=== PATIENT | female | born 1945 | race Caucasian/White ===

== ENCOUNTER 2017-05-02 07:24 | Day surgery (SDC) | payer MEDICARE, BC ==
[2017-05-02] MEDS ORDERED: Sodium Chloride 0.9% 10 ML Syringe FLUSH PRN (07:40)
[2017-05-02 09:06] VITALS: BP 167/92
--- NOTE | 2017-05-02 11:50 | OR ---
DATE OF PROCEDURE: 05/02/2017 POSTOPERATIVE CARE: Postoperative care will be provided mainly at the [address] [place] [address] Eye [facility] in conjunction with [facility]. PREOPERATIVE DIAGNOSIS: Cataract, left eye. PREOPERATIVE DIAGNOSIS: Cataract, left eye. PROCEDURE: Cataract extraction, phacoemulsification with intraocular lens placement, left eye. ANESTHESIA: Topical and intracameral. ESTIMATED BLOOD LOSS: Minimal. COMPLICATIONS: None. PATHOLOGY SPECIMENS: None. SURGICAL FINDINGS: None. INDICATION FOR PROCEDURE: The patient is a 71-year-old female with history of a visually significant cataract in the left eye, which interfered with activities of daily living. This consisted of a nuclear sclerosis cataract. Following careful discussion of the risks, benefits and alternatives to cataract extraction with intraocular lens placement including blindness and , the patient elected to proceed, and informed, written consent was obtained prior to the procedure. DESCRIPTION OF THE PROCEDURE: The patient was previously identified, and a teresa placed above the left eye. All sources, including the patient, indicated that the left eye was the correct eye. The patient was subsequently taken to the operating room where standard monitors were applied. The patient was then prepped and draped in the usual sterile fashion for ophthalmic surgery. Attention was first directed at the 12 o'clock position where a paracentesis port was fashioned. Shugar solution followed by Viscoat was instilled into the eye. Attention was then directed to the 8:30 position where a triplanar incision was made in a near-clear manner using a keratome. A continuous capsulorrhexis was then made using a combination of the cystotome and Utrata forceps. Hydrodissection was achieved using a balanced salt solution, and the lens rotated nicely. Phacoemulsification was then done using a modified [id number] technique without complication. Phaco time was 8.03 CDE. The remaining cortex was removed using the irrigation/aspiration handpiece. Provisc was then instilled into the eye. A Technis lens, model [id number], at 22.0 diopters was then placed in the capsular bag using an [place] injector. The remaining viscoelastic was removed using the irrigation/aspiration forceps. All wounds were then checked and found to be watertight. The lid speculum and drapes were removed. Maxitrol ointment was placed in the patient's left eye, and the eye was shielded. The patient tolerated the procedure well. The patient was instructed to follow up tomorrow. All needle and sponge counts were correct at the end of the procedure. Marisol Figueredo MD /[id number]
== END 2017-05-02 09:24 | disposition home or self-care (01) ==
LOC: JP.SDS 07:24
PROVIDERS: ATTEND Ophthalmology
DX: H25.12 Age-related nuclear cataract, left eye (principal); J44.9 Chronic obstructive pulmonary disease, unspecified; F32.9 Major depressive disorder, single episode, unspecified; F17.200 Nicotine dependence, unspecified, uncomplicated; Z79.899 Other long term (current) drug therapy
CPT/HCPCS: 66984; C1780; J7050

== ENCOUNTER 2017-05-16 08:23 | Day surgery (SDC) | payer MEDICARE, BC ==
[2017-05-16] MEDS ORDERED: Sodium Chloride 0.9% 10 ML Syringe FLUSH PRN (09:00)
[2017-05-16 10:05] VITALS: BP 149/92
--- NOTE | 2017-05-16 10:24 | OR ---
DATE OF PROCEDURE: 05/16/2017 POSTOPERATIVE CARE: Postoperative care will be provided mainly at the [address] [place] [address] [facility] in conjunction with [facility]. PREOPERATIVE DIAGNOSIS: Cataract, right eye. PREOPERATIVE DIAGNOSIS: Cataract, right eye. PROCEDURE: Cataract extraction, phacoemulsification with intraocular lens placement, right eye. ANESTHESIA: Topical and intracameral. ESTIMATED BLOOD LOSS: Minimal. COMPLICATIONS: None. PATHOLOGY SPECIMENS: None. SURGICAL FINDINGS: None. INDICATION FOR PROCEDURE: The patient is a 71-year-old female with history of a visually significant cataract in the right eye, which interfered with activities of daily living. This consisted of a nuclear sclerosis cataract. Following careful discussion of the risks, benefits and alternatives to cataract extraction with intraocular lens placement including blindness and , the patient elected to proceed, and informed, written consent was obtained prior to the procedure. DESCRIPTION OF THE PROCEDURE: The patient was previously identified, and a teresa placed above the right eye. All sources, including the patient, indicated that the right eye was the correct eye. The patient was subsequently taken to the operating room where standard monitors were applied. The patient was then prepped and draped in the usual sterile fashion for ophthalmic surgery. Attention was first directed at the 12 o'clock position where a paracentesis port was fashioned. Shugar solution followed by Viscoat was instilled into the eye. Attention was then directed to the 8:30 position where a triplanar incision was made in a near-clear manner using a keratome. A continuous capsulorrhexis was then made using a combination of the cystotome and Utrata forceps. Hydrodissection was achieved using a balanced salt solution, and the lens rotated nicely. Phacoemulsification was then done using a modified [id number] technique without complication. Phaco time was 9.92 CDE. The remaining cortex was removed using the irrigation/aspiration handpiece. Provisc was then instilled into the eye. A Technis lens, model [id number], at 22.0 diopters was then placed in the capsular bag using an [place] injector. The remaining viscoelastic was removed using the irrigation/aspiration forceps. All wounds were then checked and found to be watertight. The lid speculum and drapes were removed. Maxitrol ointment was placed in the patient's right eye, and the eye was shielded. The patient tolerated the procedure well. The patient was instructed to follow up tomorrow. All needle and sponge counts were correct at the end of the procedure. Marisol Figueredo MD /[id number]
== END 2017-05-16 10:30 | disposition home or self-care (01) ==
LOC: JP.SDS 08:23
PROVIDERS: ATTEND Ophthalmology
DX: H25.11 Age-related nuclear cataract, right eye (principal); J44.9 Chronic obstructive pulmonary disease, unspecified; F32.9 Major depressive disorder, single episode, unspecified; F17.200 Nicotine dependence, unspecified, uncomplicated
CPT/HCPCS: 66984; C1780; J7050

== ENCOUNTER 2020-10-13 11:53 | Inpatient (IN) | payer MEDICARE ==
[2020-10-13] MEDS ORDERED: Sodium Chloride 0.9% 1,000 ML IV SCH (12:30)
--- NOTE | 2020-10-13 13:22 | EDM.PDOC ---
ED HPI GENERAL MEDICAL PROBLEM - General Chief Complaint: Gastrointestinal Problem Stated Complaint: ABD PAIN Time Seen by Provider: 10/13/20 12:15 Source of Information: Reports: Patient, Family History Limitations: Reports: No Limitations - History of Present Illness INITIAL COMMENTS - FREE TEXT/NARRATIVE: 75-year-old female with a history of a hysterectomy, presents with 4 days of increasing lower abdominal pain, nausea and vomiting after eating, and general malaise. Decreased bowel movements but no diarrhea. Denies radiation of pain to her back, denies shortness of breath or chest pain. No fevers or chills. She has a history of diverticulitis but this seems different. She points to her lower abdomen, especially the left side as the source of pain. No urinary s ymptoms. Onset: Gradual Duration: Day(s): (4 days) Location: Reports: Abdomen (Lower abdomen, especially left lower abdomen) Quality: Reports: Sharp, Stabbing Improves with: Reports: Rest (She is sleeping well) Worsens with: Reports: Eating Associated Symptoms: Reports: Loss of Appetite (Significant loss of appetite, according to her she has not eaten "anything in 3 days".), Malaise, Nausea/Vomiting. Denies: Chest Pain, Cough, Diaphoresis, Weakness - Related Data Allergies Allergy/AdvReac Type Severity Reaction Status Date / Time No Known Allergies Allergy Verified 10/13/20 12:26 Home Meds: Home Meds FLUoxetine HCl [Prozac] 40 mg PO DAILY 03/24/13 [History] Albuterol [Ventolin HFA] 1 puff INH DAILY PRN 05/02/17 [History] Aspirin [Adult Low Dose Aspirin EC] 81 mg PO DAILY 05/02/17 [History] Alendronate Sodium [Fosamax] 70 mg PO ASDIRECTED 10/13/20 [History] Budesonide/Formoterol Fumarate [Budesonide-Formoterol 160-4.5] 2 puff INH BID 10/13/20 [History] Calcium Carbonate/Vitamin D3 [Calcium 500-Vit D3 200 Caplet] 1 tab PO DAILY 10/13/20 [History] Cetirizine [ZyrTEC] 10 mg PO DAILY 10/13/20 [History] Gabapentin [Neurontin] 100 mg PO TID 10/13/20 [History] Losartan [Cozaar] 50 mg PO DAILY 10/13/20 [History] Multivitamin 1 tab PO DAILY 10/13/20 [History] busPIRone [Buspar] 15 mg PO DAILY 10/13/20 [History] Past Medical History HEENT History: Reports: Allergic Rhinitis, Cataract, Impaired Vision Cardiovascular History: Reports: High Cholesterol Respiratory History: Reports: COPD, SOB Gastrointestinal History: Reports: Colon Polyp, Hiatal Hernia Genitourinary History: Reports: None 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: Musculoskeletal History: Reports: Fracture, Fibromyalgia, Osteoarthritis, Osteoporosis - Infectious Disease History Infectious Disease History: Reports: Chicken Pox, Measles, Mumps - Past Surgical History HEENT Surgical History: Reports: Cataract Surgery GI Surgical History: Reports: Appendectomy, Colonoscopy, EGD Female Surgical History: Reports: Oophorectomy Social & Family History - Tobacco Use Tobacco Use Status *Q: Light Tobacco User Years of Tobacco use: 50 Packs/Tins Daily: 0.5 - Caffeine Use Caffeine Use: Reports: Coffee - Recreational Drug Use Recreational Drug Use: No ED ROS GENERAL - Review of Systems Review Of Systems: See Below Constitutional: Reports: Malaise, Decreased Appetite. Denies: Fever, Chills HEENT: Reports: No Symptoms Respiratory: Reports: No Symptoms Cardiovascular: Reports: No Symptoms. Denies: Chest Pain GI/Abdominal: Reports: Abdominal Pain, Decreased Appetite, Nausea, Vomiting. Denies: Black Stool, Constipation, Diarrhea, Hematemesis, Hematochezia : Reports: No Symptoms Skin: Reports: No Symptoms Neurological: Reports: No Symptoms Psychiatric: Reports: No Symptoms ED EXAM, GI/ABD - Physical Exam Exam: See Below Exam Limited By: No Limitations General Appearance: Alert, No Apparent Distress (Looks uncomfortable but not distressed) Eyes: Bilateral: Normal Appearance (No obvious jaundice) Head: Atraumatic Respiratory/Chest: No Respiratory Distress, Lungs Clear Cardiovascular: Normal Peripheral Pulses, Regular Rate, Rhythm. No: Extra Beats GI/Abdominal Exam: Normal Bowel Sounds, Soft, Tender (Reacts with tenderness to palpation, moderate guarding in the lower abdomen especially the left side. Upper abdomen is basically nontender with no guarding or rebound) Extremities: Normal Inspection. No: Pedal Edema Neurological: Alert, Oriented, No Motor/Sensory Deficits Psychiatric: Flat Affect Skin Exam: Warm, Dry Course - Vital Signs Last Recorded V/S: Last Vital Signs Temp 98.4 F 10/13/20 17:35 Pulse 78 10/13/20 17:35 Resp 14 10/13/20 17:35 BP 148/76 H 10/13/20 17:35 Pulse Ox 98 10/13/20 17:35 - Orders/Labs/Meds Orders: Active Orders 24 hr Category Date Time Status Patient Status [ADT] Routine ADT 10/13/20 16:03 Active Ambulate [RC] ASDIRECTED Care 10/13/20 16:03 Active Communication Order [RC] ASDIRECTED Care 10/13/20 16:06 Active Dorsiflex/Plantar flex x 10 [RC] QSHIFT Care 10/13/20 16:03 Active Head of Bed Elevation [RC] CONTINUOUS Care 10/13/20 16:03 Active May Shower [RC] ASDIRECTED Care 10/15/20 16:06 Active Oxygen Therapy [RC] PRN Care 10/13/20 16:03 Active Pneumonia Education [RC] UPON Care 10/13/20 16:03 Active RT Aerosol Therapy [RC] ASDIRECTED Care 10/13/20 15:37 Active RT Incentive Spirometry [RC] Q1HWA Care 10/13/20 16:03 Active Turn, Cough, Deep Breathe [RC] Q1HWA Care 10/13/20 16:03 Active Up to Chair [RC] TIDMEALS Care 10/13/20 16:03 Active Vital Signs [RC] PER UNIT ROUTINE Care 10/13/20 16:03 Active Respiratory Care Assess and Treatment [CONS] Routine Cons 10/13/20 16:03 Active Advance Diet Instructions [DIET] Diet 10/13/20 Dinner Active Hand 2V Rt [CR] Routine Exams 10/13/20 15:45 Stop Req NG Tube Placement [CR] Stat Exams 10/13/20 14:28 Ordered BASIC METABOLIC PANEL,BMP [CHEM] AM Lab 10/14/20 05:11 Ordered CBC WITH AUTO DIFF [HEME] AM Lab 10/14/20 05:11 Ordered CULTURE ANAEROBIC [RM] Routine Lab 10/13/20 17:30 Received CULTURE WOUND + SMEAR [RM] Stat Lab 10/13/20 17:30 Received Acetaminophen/oxyCODONE [Percocet 325-10 MG] Med 10/13/20 16:03 Active 2 tab PO Q4H PRN Benzocaine/Cetylpyrd/Menthol [Cepacol Sore Throat] Med 10/13/20 16:03 Active 1 lozenge MUCMEM Q1H PRN Docusate Sodium [Colace] Med 10/13/20 16:03 Active 100 mg PO BID PRN Docusate Sodium/Sennosides [Senna Plus] Med 10/13/20 16:03 Active 1 tab PO BID PRN Ropivacaine [Naropin 0.5%] 20 ml Med 10/13/20 15:30 Active dexAMETHasone [Decadron] 8 mg EPINEPHrine [Adrenalin] 0.4 mg Sodium Chloride 0.9% [Normal Saline] 57.6 ml NERVRT ASDIRECTED Sodium Chloride 0.9% [Normal Saline] 1,000 ml Med 10/13/20 16:15 Active IV ASDIRECTED bisacodyL [Dulcolax] Med 10/13/20 16:03 Active 5 mg PO DAILY PRN fentaNYL [Sublimaze] Med 10/13/20 16:05 Active 10 - 30 mcg IVPUSH Q1H PRN hydrOXYzine HCL [Vistaril] Med 10/13/20 16:03 Active 50 mg IM Q4H PRN Abdominal Binder [OM.PC] Per Unit Routine Oth 10/13/20 16:06 Ordered Oral Care [OM.PC] BID Oth 10/13/20 16:15 Ordered Oral Care [OM.PC] BID Oth 10/14/20 16:15 Ordered Resuscitation Status Routine Resus Stat 10/13/20 16:03 Ordered Medication Orders Benzocaine/Menthol (Benzocaine/Cetylpyridinium/Menthol Lozenge) 1 lozenge MUCMEM Q1H PRN PRN Reason: Sore Throat Bisacodyl (Bisacodyl 5 Mg Tab) 5 mg PO DAILY PRN PRN Reason: Constipation Ropivacaine 20 ml/Dexamethasone 8 mg/Epinephrine HCl 0.4 mg/ Sodium Chloride 57.6 ml 0 ml NERVRT ASDIRECTED RUBIA Last Admin: 10/13/20 16:49 Dose: 80 syringe Documented by: DENA Docusate Sodium (Docusate Sodium 100 Mg Cap) 100 mg PO BID PRN PRN Reason: Constipation Fentanyl (Fentanyl 100 Mcg/2 Ml Sdv) 10 - 30 mcg IVPUSH Q1H PRN PRN Reason: Pain Hydroxyzine HCl (Hydroxyzine Hcl 100 Mg/2 Ml Sdv) 50 mg IM Q4H PRN PRN Reason: Nausea Last Admin: 10/13/20 17:10 Dose: 50 mg Documented by: DENA Sodium Chloride (Normal Saline) 1,000 mls @ 125 mls/hr IV ASDIRECTED RUBIA Oxycodone/Acetaminophen (Acetaminophen/Oxycodone 325-10 Mg Tab) 2 tab PO Q4H PRN PRN Reason: Pain (moderate 4-6) Senna/Docusate Sodium (Docusate Sodium/Sennosides 50-8.6 Mg Tab) 1 tab PO BID PRN PRN Reason: Constipation Labs: Laboratory Tests 10/13/20 10/13/20 10/13/20 Range/Units 12:42 12:42 12:42 WBC 9.0 (4.5-11.0) K/uL RBC 4.73 (3.30-5.50) M/uL Hgb 13.6 (12.0-15.0) g/dL Hct 41.5 (36.0-48.0) % MCV 88 (80-98) fL MCH 29 (27-31) pg MCHC 33 (32-36) % Plt Count 407 H (150-400) K/uL Neut % (Auto) 81.9 H (36-66) % Lymph % (Auto) 8.3 L (24-44) % Scurry % (Auto) 9.3 H (2-6) % Eos % (Auto) 0.3 L (2-4) % Baso % (Auto) 0.2 (0-1) % Sodium 136 L (140-148) mmol/L Potassium 4.2 (3.6-5.2) mmol/L Chloride 98 L (100-108) mmol/L Carbon Dioxide 25 (21-32) mmol/L Anion Gap 17.2 H (5.0-14.0) mmol/L BUN 36 H (7-18) mg/dL Creatinine 0.8 (0.6-1.0) mg/dL Est Cr Clr Drug Dosing 39.75 mL/min Estimated GFR (MDRD) > 60 (>60) Glucose 107 H (74-106) mg/dL Lactic Acid 1.1 (0.4-2.0) mmol/L Calcium 9.6 (8.5-10.1) mg/dL Total Bilirubin 0.8 (0.2-1.0) mg/dL AST 27 (15-37) U/L ALT 27 (12-78) U/L Alkaline Phosphatase 71 (46-116) U/L Total Protein 6.4 (6.4-8.2) g/dL Albumin 3.1 L (3.4-5.0) g/dL Globulin 3.3 (2.3-3.5) g/dL Albumin/Globulin Ratio 0.9 L (1.2-2.2) Lipase 73 (73-393) U/L Urine Color (YELLOW) Urine Appearance (CLEAR) Urine pH (5.0-8.0) Ur Specific Elmer (1.008-1.030) Urine Protein (NEGATIVE) mg/dL Urine Glucose (UA) (NEGATIVE) mg/dL Urine Ketones (NEGATIVE) mg/dL Urine Occult Blood (NEGATIVE) Urine Nitrite (NEGATIVE) Urine Bilirubin (NEGATIVE) Urine Urobilinogen (0.2-1.0) EU/dL Ur Leukocyte Esterase (NEGATIVE) Urine RBC (0-5) Urine WBC (0-5) Ur Epithelial Cells Amorphous Sediment Urine Bacteria Urine Mucus Urine Other 10/13/20 Range/Units 12:53 WBC (4.5-11.0) K/uL RBC (3.30-5.50) M/uL Hgb (12.0-15.0) g/dL Hct (36.0-48.0) % MCV (80-98) fL MCH (27-31) pg MCHC (32-36) % Plt Count (150-400) K/uL Neut % (Auto) (36-66) % Lymph % (Auto) (24-44) % Scurry % (Auto) (2-6) % Eos % (Auto) (2-4) % Baso % (Auto) (0-1) % Sodium (140-148) mmol/L Potassium (3.6-5.2) mmol/L Chloride (100-108) mmol/L Carbon Dioxide (21-32) mmol/L Anion Gap (5.0-14.0) mmol/L BUN (7-18) mg/dL Creatinine (0.6-1.0) mg/dL Est Cr Clr Drug Dosing mL/min Estimated GFR (MDRD) (>60) Glucose (74-106) mg/dL Lactic Acid (0.4-2.0) mmol/L Calcium (8.5-10.1) mg/dL Total Bilirubin (0.2-1.0) mg/dL AST (15-37) U/L ALT (12-78) U/L Alkaline Phosphatase (46-116) U/L Total Protein (6.4-8.2) g/dL Albumin (3.4-5.0) g/dL Globulin (2.3-3.5) g/dL Albumin/Globulin Ratio (1.2-2.2) Lipase (73-393) U/L Urine Color Yellow (YELLOW) Urine Appearance Slightly cloudy A (CLEAR) Urine pH 6.0 (5.0-8.0) Ur Specific Elmer 1.025 (1.008-1.030) Urine Protein 30 H (NEGATIVE) mg/dL Urine Glucose (UA) Negative (NEGATIVE) mg/dL Urine Ketones 40 H (NEGATIVE) mg/dL Urine Occult Blood Small H (NEGATIVE) Urine Nitrite Negative (NEGATIVE) Urine Bilirubin Moderate H (NEGATIVE) Urine Urobilinogen 1.0 (0.2-1.0) EU/dL Ur Leukocyte Esterase Negative (NEGATIVE) Urine RBC 5-10 H (0-5) Urine WBC 0-5 (0-5) Ur Epithelial Cells Not seen Amorphous Sediment Moderate Urine Bacteria Few Urine Mucus Few Urine Other See note Meds: Medications Generic Name Dose Route Start Last Admin Trade Name Freq PRN Reason Stop Dose Admin Benzocaine/Menthol 1 lozenge 10/13/20 16:03 Benzocaine/Cetylpyridinium/Menthol Lozenge MUCMEM Q1H PRN Sore Throat Bisacodyl 5 mg 10/13/20 16:03 Bisacodyl 5 Mg Tab PO DAILY PRN Constipation Ropivacaine 20 ml/ 0 ml 10/13/20 15:30 10/13/20 16:49 Dexamethasone 8 mg/ NERVRT 80 syringe Epinephrine HCl 0.4 mg/ Sodium ASDIRECTED RUBIA Administration Chloride 57.6 ml Docusate Sodium 100 mg 10/13/20 16:03 Docusate Sodium 100 Mg Cap PO BID PRN Constipation Fentanyl 10 - 30 mcg 10/13/20 16:05 Fentanyl 100 Mcg/2 Ml Sdv IVPUSH Q1H PRN Pain Hydroxyzine HCl 50 mg 10/13/20 16:03 10/13/20 17:10 Hydroxyzine Hcl 100 Mg/2 Ml Sdv IM 50 mg Q4H PRN Administration Nausea Sodium Chloride 1,000 mls @ 125 mls/hr 10/13/20 16:15 Normal Saline IV ASDIRECTED RUBIA Oxycodone/Acetaminophen 2 tab 10/13/20 16:03 Acetaminophen/Oxycodone 325-10 Mg Tab PO Q4H PRN Pain (moderate 4-6) Senna/Docusate Sodium 1 tab 10/13/20 16:03 Docusate Sodium/Sennosides 50-8.6 Mg Tab PO BID PRN Constipation Discontinued Medications Generic Name Dose Route Start Last Admin Trade Name Freq PRN Reason Stop Dose Admin Albuterol/Ipratropium 3 ml 10/13/20 15:37 10/13/20 15:41 Albuterol/Ipratropium 3.0-0.5 Mg/3 Ml Neb Soln NEB 10/13/20 15:38 3 ml ONETIME ONE Administration Bupivacaine HCl/Epinephrine Bitart Confirm 10/13/20 15:09 Bupivacaine 0.5%/Epinephrine 1:200,000 50 Ml Mdv Administered 10/13/20 15:10 Dose 50 ml .ROUTE .STK-MED ONE Dexamethasone Confirm 10/13/20 15:39 Dexamethasone 4 Mg/Ml Sdv Administered 10/13/20 15:40 Dose 4 mg .ROUTE .STK-MED ONE Fentanyl Confirm 10/13/20 15:38 Fentanyl 250 Mcg/5 Ml Sdv Administered 10/13/20 15:39 Dose 250 mcg .ROUTE .STK-MED ONE Glycopyrrolate Confirm 10/13/20 15:39 Glycopyrrolate 0.2 Mg/Ml 5 Ml Mdv Administered 10/13/20 15:40 Dose 1 mg .ROUTE .STK-MED ONE Sodium Chloride 1,000 mls @ 500 mls/hr 10/13/20 12:30 10/13/20 12:41 Normal Saline IV 500 mls/hr ASDIRECTED RUBIA Administration Sodium Chloride 70 mls @ 3 mls/sec 10/13/20 13:45 10/13/20 13:49 Normal Saline IV 10/13/20 13:46 3 mls/sec ASDIRECTED RUBIA Administration Cefazolin Sodium/Dextrose 2 gm 50 mls @ 100 mls/hr 10/13/20 15:30 10/13/20 15:12 / Premix IV 10/13/20 15:59 100 mls/hr ONCALL ONE Administration Metronidazole 500 mg/ Premix 100 mls @ 100 mls/hr 10/13/20 14:43 10/13/20 15:50 IV 10/13/20 15:42 100 mls/hr ONETIME ONE Administration Iopamidol 60 ml 10/13/20 13:32 10/13/20 13:49 Iopamidol 612 Mg/Ml 500 Ml Multipack Bottle IV 10/13/20 13:33 60 ml ONETIME ONE Administration Ketorolac Tromethamine Confirm 10/13/20 16:56 Ketorolac 30 Mg/Ml Sdv Administered 10/13/20 16:57 Dose 30 mg .ROUTE .STK-MED ONE Neostigmine Methylsulfate Confirm 10/13/20 15:39 Neostigmine Methylsulfate 1 Mg/Ml 5 Ml Syringe Administered 10/13/20 15:40 Dose 5 mg .ROUTE .STK-MED ONE Ondansetron HCl Confirm 10/13/20 15:39 Ondansetron 4 Mg/2 Ml Sdv Administered 10/13/20 15:40 Dose 4 mg .ROUTE .STK-MED ONE Propofol Confirm 10/13/20 15:39 Propofol 200 Mg/20 Ml Sdv Administered 10/13/20 15:40 Dose 200 mg .ROUTE .STK-MED ONE Rocuronium [place] Confirm 10/13/20 15:39 Rocuronium 50 Mg/5 Ml Vial Administered 10/13/20 15:40 Dose 50 mg .ROUTE .STK-MED ONE Sodium Chloride 10 ml 10/13/20 13:32 10/13/20 13:49 Sodium Chloride 0.9% 10 Ml Syringe FLUSH 10/13/20 13:33 10 ml ONETIME PRN Administration per radiology protocol Succinylcholine Chloride Confirm 10/13/20 15:39 Succinylcholine 200 Mg/10 Ml Mdv Administered 10/13/20 15:40 Dose 200 mg .ROUTE .STK-MED ONE - Re-Assessments/Exams Free Text/Narrative Re-Assessment/Exam: 10/13/20 13:21 IV was started and she will be hydrated with 500 cc of normal saline an hour. CBC CMP lipase lactic acid were drawn and a quick cath urine obtained. She will likely need a CT of the abdomen and pelvis to rule out small bowel obstruction versus diverticulitis or other source of abdominal pain. 10/13/20 13:39 White count, hemoglobin, lactic acid and lipase were all normal. CT the abdomen and pelvis was ordered with IV contrast as kidney function was normal as well. 10/13/20 14:44 CT confirmed distal small bowel obstruction. Some free fluid in the pelvis as well. Dr. Degroot was consulted, and after evaluating the patient he decided to take her directly to surgery. Departure - Departure Time of Disposition: 16:06 Disposition: Admitted As Inpatient 68 Clinical Impression: Small bowel obstruction Abdominal pain Qualifiers: Abdominal location: lower abdomen, unspecified Qualified Code(s): R10.30 - Lower abdominal pain, unspecified - Discharge Information Sepsis Event Note (ED) - Evaluation Sepsis Screening Result: No Definite Risk - Focused Exam Vital Signs: Vital Signs Temp Pulse Resp BP BP Pulse Ox 10/13/20 17:35 98.4 F 78 14 148/76 H 98 10/13/20 17:30 84 14 148/75 H 98 10/13/20 17:25 84 14 146/70 H 98 10/13/20 17:20 98.2 F 86 14 155/78 H 99 10/13/20 17:15 96 16 152/81 H 100 10/13/20 17:10 100 16 173/86 H 100 10/13/20 17:05 98.2 F 108 H 16 171/90 H 100 10/13/20 14:03 97.5 F 80 155/74 H 96 10/13/20 13:19 75 131/61 95 10/13/20 12:40 81 16 155/84 H 94 L 10/13/20 12:24 97.7 F 87 16 138/83 93 L 10/13/20 12:11 97.7 F 87 16 138/83 93 L - My Orders Last 24 Hours: My Active Orders 10/13/20 14:28 NG Tube Placement [CR] Stat 10/13/20 15:37 RT Aerosol Therapy [RC] ASDIRECTED 10/13/20 15:45 Hand 2V Rt [CR] Routine - Assessment/Plan Last 24 Hours: My Active Orders 10/13/20 14:28 NG Tube Placement [CR] Stat 10/13/20 15:37 RT Aerosol Therapy [RC] ASDIRECTED 10/13/20 15:45 Hand 2V Rt [CR] Routine
[2020-10-13] MEDS ORDERED: Iopamidol 612 MG/ML 500 ML Multipack Bottle IV ONE (13:32)
[2020-10-13] MEDS ORDERED: Sodium Chloride 0.9% 10 ML Syringe FLUSH PRN (13:32)
--- NOTE | 2020-10-13 14:28 | CT ---
Abdomen Pelvis w Cont CLINICAL HISTORY: Lower abdominal pain COMPARISON: 2013. TECHNIQUE: Transverse scans were obtained from the base of the lungs to the pubic symphysis following oral contrast and IV infusion of contrast.Auto dosage reduction and iterative reconstructiontechniques employed. FINDINGS: There is moderate diffuse distention of small bowel. This appears to transition in the mid ileum. No mesenteric mass is identified. There is free fluid in the pelvis. There is a right inguinal hernia. The lungs are emphysematous.tThere is a 8 x 9 mm calcified granuloma in the right lung base unchanged from 2013. The liver shows no mass or biliary dilatation. The gallbladder has a normal appearance. The spleen has a normal size and shape. The pancreas is less than optimally demarcated due to a paucity of retroperitoneal fat and multiple fluid-filled small bowel loops. The adrenal glands appear normal bilaterally . The kidneys show no mass, stones or hydronephrosis. The ureters have a normal caliber as seen. The aorta shows moderate atheromatous calcification. There is no suspicious retroperitoneal adenopathy. IMPRESSION: Moderate diffuse small bowel distention consistent with moderate to high-grade small bowel obstruction. This is likely within the middle third of the ileum. Moderate nonspecific free fluid in the pelvis
[2020-10-13] MEDS ORDERED: metroNIDAZOLE/Normal Saline 500 MG in Premix Bag 1 BAG IV ONE (14:43)
[2020-10-13] MEDS ORDERED: Bupivacaine 0.5%/EPINEPHrine 1:200,000 50 ML MDV ONE (15:09)
[2020-10-13] MEDS ORDERED: ROPIVACAINE NERVRT SCH ×4 (15:30)
[2020-10-13] MEDS ORDERED: SODIUM CHLORIDE 0.9% NERVRT SCH ×4 (15:30)
[2020-10-13] MEDS ORDERED: EPINEPHRINE NERVRT SCH ×4 (15:30)
[2020-10-13] MEDS ORDERED: DEXAMETHASONE NERVRT SCH ×4 (15:30)
[2020-10-13] MEDS ORDERED: ceFAZolin 2 GM in Premix Bag 1 BAG IV ONE (15:30)
[2020-10-13] MEDS ORDERED: Albuterol/Ipratropium 3.0-0.5 MG/3 ML Neb Soln NEB ONE (15:37)
[2020-10-13] MEDS ORDERED: fentaNYL 250 MCG/5 ML SDV ONE (15:38)
[2020-10-13] MEDS ORDERED: Dexamethasone 4 MG/ML SDV ONE (15:39)
[2020-10-13] MEDS ORDERED: Succinylcholine 200 MG/10 ML MDV ONE (15:39)
[2020-10-13] MEDS ORDERED: Glycopyrrolate 0.2 MG/ML 5 ML MDV ONE (15:39)
[2020-10-13] MEDS ORDERED: Ondansetron 4 MG/2 ML SDV ONE (15:39)
[2020-10-13] MEDS ORDERED: Neostigmine Methylsulfate 1 MG/ML 5 ML Syringe ONE (15:39)
[2020-10-13] MEDS ORDERED: Propofol 200 MG/20 ML SDV ONE (15:39)
[2020-10-13] MEDS ORDERED: Rocuronium 50 MG/5 ML Vial ONE (15:39)
[2020-10-13] MEDS ORDERED: Acetaminophen/oxyCODONE 325-10 MG Tab PO PRN (16:03)
[2020-10-13] MEDS ORDERED: Docusate Sodium 100 MG Cap PO PRN (16:03)
[2020-10-13] MEDS ORDERED: Benzocaine/Cetylpyridinium/Menthol Lozenge MUCMEM PRN (16:03)
[2020-10-13] MEDS ORDERED: hydrOXYzine HCL 100 MG/2 ML SDV IM PRN (16:03)
[2020-10-13] MEDS ORDERED: Bisacodyl 5 MG Tab PO PRN (16:03)
[2020-10-13] MEDS ORDERED: fentaNYL 100 MCG/2 ML SDV IVPUSH PRN (16:05)
[2020-10-13] MEDS ORDERED: Ketorolac 30 MG/ML SDV ONE (16:56)
[2020-10-13] MEDS: Sodium Chloride 0.9% 1,000 ML IV SCH (18:06)
--- NOTE | 2020-10-13 23:25 | CONS ---
DATE OF SERVICE: 10/13/2020 REFERRING PHYSICIAN: CONSULTING PHYSICIAN: Jhony Degroot MD REASON FOR CONSULTATION: Abdominal pain. HISTORY OF PRESENT ILLNESS: This is a pleasant 75-year-old female, who has had approximately a 72-hour history of right lower quadrant abdominal pain. This was made worse by nausea and vomiting. This is a new problem for her. The pain is 3 to 4 out of 10 and intermittent. PAST MEDICAL HISTORY: Open oophorectomy. PHYSICAL EXAMINATION: VITAL SIGNS: Stable. GENERAL: The patient is appropriate for condition. HEENT: Pupils are equal. NECK: Supple. LUNGS: Clear. CARDIOVASCULAR: Regular rate and rhythm. RESPIRATORY: Lungs are clear to auscultation bilaterally. ABDOMEN: Bowel sounds are positive. Distended. Pain with palpation in the right lower quadrant. EXTREMITIES: Full range of motion. NEUROLOGIC: Oriented x3. PSYCHIATRIC: No gross depression. IMAGING: I did review the CT scan, which shows bowel obstruction in the right lower quadrant, most likely ileum. ASSESSMENT AND PLAN: The patient was taken to the operating room for exploratory laparotomy. We discussed the possibilities including small bowel resection; ostomy formation; injury such as to bowel, bladder, and blood vessels; chronic wounds and chronic pain; along with sepsis. The patient understands these risks and wishes to proceed. Jhony Degroot MD /[id number]
[2020-10-14] MEDS ORDERED: Sodium Chloride 0.9% 250 ML IV SCH (05:00)
[2020-10-14] MEDS ORDERED: ceFAZolin 2 GM in Sodium Chloride 0.9% 50 ML IV ONE (07:51)
--- NOTE | 2020-10-14 07:56 | OR ---
DATE OF PROCEDURE: 10/13/2020 SURGEON: Jhony Degroot MD PROCEDURES: 1. Transversus abdominis plane blocks bilaterally. 2. Rectus sheath blocks bilaterally. COMPLICATION: None. SOLAR SALES ASSOCIATE: None. RISKS: Risks, benefits, alternatives, and limitations including, none limited to infection, bleeding, and injury to abdominal structures were explained to the patient, and she wished to proceed. PROCEDURE IN DETAIL: The patient was placed in the supine position. The right transversus plane was identified first. 20% of the solution being injected under direct visualization. This was repeated on the other side in the same manner, same fashion, same technique, and in the same sequence. Bilateral rectus sheaths were then identified and the needle was introduced into the posterior aspect. 20% of the solution was injected respectfully bilaterally. At no point was the needle blindly advanced nor advanced past the peritoneum. The patient tolerated the procedure well. Jhony Degroot MD /[id number]
[2020-10-14] MEDS ORDERED: metroNIDAZOLE/Normal Saline 500 MG in Premix Bag 1 BAG IV SCH (08:00)
[2020-10-14] MEDS: Sodium Chloride 0.9% 1,000 ML IV SCH ×2 (08:10→17:04)
[2020-10-14] MEDS ORDERED: ceFAZolin 2 GM in Premix Bag 1 BAG IV ONE (08:15)
--- NOTE | 2020-10-14 08:22 | OR ---
DATE OF PROCEDURE: 10/13/2020 SURGEON: Jhony Degroot MD PROCEDURES: 1. Exploratory laparotomy. 2. Small bowel resection. 3. Drainage of peritonitis-type fluid, right abdomen, cultured, ([id number]). 4. Reduction of an incarcerated/strangulated right inguinal hernia. FINDINGS: Small bowel obstruction secondary to incarcerated/strangulated inguinal hernia, right side, requiring bowel resection due to ischemic bowel. COMPLICATIONS: None. PROCESS CONTROLS TECHNICIAN: None. ANESTHESIA: General. RISKS: Risks, benefits, alternatives, and limitations including, but not limited to infection, bleeding, perforation, false positives and false negatives along with anastomotic failure, abscess, fistula formation, requirement for reoperation, small bowel resection, bladder injury, and other risks not listed were explained to the patient, and she wished to proceed. PROCEDURE IN DETAIL: The patient was placed in supine position. A midline abdominal incision was made. This was infraumbilical and approximately 8 cm in size. Exploratory laparotomy was then commenced. The small bowel was readily identified and followed distally to the distal 1/3 of the ileum. The small bowel was noted to be incarcerated and strangulated within an inguinal hernia. The inguinal hernia was able then to be reduced. During this aspect of the repair, at no time was the small bowel unduly torsed or any serosal tear was noted. The bowel had an obvious transition point at this location. The bowel was then left for 5 minutes and then reinspected. Unfortunately, that area of ischemia did not do not improve, therefore, it was determined to resect the bowel at this time. The resection was performed using a [id number] functional end-to-end anastomosis. A silva load stapler was used to transect the bowel. The mesentery was also transected using a stapler load. A stitch was created to abut the 2 ends, and a single zoila defect was created in the antimesenteric side. The 60 mm stapler was then introduced and an anastomosis was created. Allis clamps were then used to approximate the defect. This was then transected using a silva load stapler. The mesenteric defect was then closed using 3-0 Vicryl in a running fashion. This was all performed extracorporeally. This was then irrigated. Gloves were changed. Tisseel was then placed around the anastomosis. This was then placed within the abdomen. Of note, at the beginning of the case, the patient was noted to have peritonitis in this right lower quadrant. There was a moderate silva-colored fluid collection. This was removed and sent for culture. This was not consistent with appendicitis. This was also thoroughly irrigated. The fascia was closed with #1 Vicryl in a running fashion x2. Subcutaneous tissue was irrigated, closed with 3-0 Vicryl, 4-0 Vicryl, and andrew were used. The patient tolerated the procedure well. Jhony Degroot MD /[id number]
[2020-10-14] MEDS ORDERED: Acetaminophen/oxyCODONE 325-10 MG Tab PO PRN (08:35)
[2020-10-14] MEDS ORDERED: Enoxaparin 40 MG/0.4 ML Syringe SUBCUT SCH (09:00)
[2020-10-14] MEDS: Bisacodyl 5 MG Tab PO SCH ×2 (09:09→09:45)
[2020-10-14] MEDS: Enoxaparin 30 MG/0.3 ML Syringe SUBCUT SCH (09:09)
--- NOTE | 2020-10-14 11:38 | PN ---
DATE OF SERVICE: 10/14/2020 SUBJECTIVE: The patient is doing well today. No nausea, vomiting, shortness of breath, or chest pain. She is not passing any gas. No GI activity yet. Her pain is well controlled. OBJECTIVE: VITAL SIGNS: Stable. She is afebrile per nursing report. CARDIOVASCULAR: Regular rhythm and rate. RESPIRATORY: Lungs clear to auscultation bilaterally. SKIN: Incision dressing intact. ASSESSMENT: Status post small bowel resection. PLAN: 1. We will place the patient on Ancef and Flagyl due to some gross spillage during the surgery yesterday. 2. Prophylaxis. She will remain on Lovenox. Increase activity. 3. GI activity. No GI activity today. She will be on Entereg stool softener, early ambulation and same diet. 4. Genitourinary. She is making slightly less than 50 mL in 2 hours for fluid. We will continue the fluid bolus program and keep the Navarrete catheter for now. Jhony Degroot MD /[id number]
[2020-10-14] MEDS: metroNIDAZOLE/Normal Saline 500 MG in Premix Bag 1 BAG IV SCH (17:07)
[2020-10-14] MEDS: ceFAZolin 1 GM in Premix Bag 1 BAG IV SCH (19:56)
[2020-10-15] MEDS: metroNIDAZOLE/Normal Saline 500 MG in Premix Bag 1 BAG IV SCH ×3 (02:35→18:39)
[2020-10-15] MEDS: ceFAZolin 1 GM in Premix Bag 1 BAG IV SCH ×3 (04:46→19:47)
[2020-10-15] MEDS: Sodium Chloride 0.9% 1,000 ML IV SCH (04:47)
[2020-10-15] MEDS: Enoxaparin 30 MG/0.3 ML Syringe SUBCUT SCH (08:00)
[2020-10-15] MEDS: Bisacodyl 5 MG Tab PO SCH (08:00)
[2020-10-15] MEDS ORDERED: Dextrose 5%-Lactated Ringers 1,000 ML IV SCH (08:45)
[2020-10-15] MEDS: oxyCODONE 5 MG Tab PO PRN ×2 (10:58→19:57)
[2020-10-15] MEDS: Magnesium Sulfate/Water 2 GM/50 ML BAG IV SCH ×3 (11:11→21:37)
[2020-10-15] MEDS ORDERED: Potassium Acetate 20 MEQ, Lidocaine 1% 2 ML in Sodium Chloride 0.9% 100 ML IV ONE (12:00)
[2020-10-15] MEDS: Potassium Phos in 0.9 % NaCl 15 MMOL in Premix Bag 1 BAG IV SCH ×6 (15:23→21:37)
[2020-10-15] MEDS: Acetaminophen 325 MG Tab PO PRN (16:41)
[2020-10-15] MEDS: Ondansetron 4 MG/2 ML SDV IVPUSH PRN (20:25)
[2020-10-16] MEDS: metroNIDAZOLE/Normal Saline 500 MG in Premix Bag 1 BAG IV SCH ×3 (02:24→18:14)
[2020-10-16] MEDS: ceFAZolin 1 GM in Premix Bag 1 BAG IV SCH ×3 (03:50→19:28)
[2020-10-16] MEDS: Magnesium Sulfate/Water 2 GM/50 ML BAG IV SCH ×4 (03:50→23:20)
[2020-10-16] MEDS: Acetaminophen 325 MG Tab PO PRN ×2 (03:57→12:28)
[2020-10-16] MEDS: Enoxaparin 30 MG/0.3 ML Syringe SUBCUT SCH (08:04)
[2020-10-16] MEDS: Bisacodyl 5 MG Tab PO SCH ×3 (08:04→21:00)
[2020-10-16] MEDS ORDERED: Dextrose 5%-Lactated Ringers 1,000 ML IV SCH (08:15)
[2020-10-16] MEDS ORDERED: Furosemide 20 MG/2 ML VIAL IV ONE (08:30)
[2020-10-16] MEDS: Docusate Sodium 100 MG Cap PO SCH ×2 (09:37→21:00)
[2020-10-16] MEDS: Potassium Phos in 0.9 % NaCl 15 MMOL in Premix Bag 1 BAG IV SCH ×8 (09:38→19:34)
--- NOTE | 2020-10-16 12:06 | PN ---
DATE OF SERVICE: 10/15/2020 The patient has been afebrile, stable vital signs. Oral intake has been fair, but urine output remains somewhat marginal. Chemistries are still pending and will have those called to me when they are available. . No bowel movement as of yet. We will continue the bowel stimulation, Percocet 10/325 which is making her little too sleepy, slow down the oxycodone 5 mg q.6 hours p.r.n. pain and the Tylenol in addition to that or give him oxycodone as tolerated. We will have her get in the shower today and otherwise maximize activity and work with pulmonary toilet. Carlos Rosado MD /[id number]
[2020-10-17] MEDS: metroNIDAZOLE/Normal Saline 500 MG in Premix Bag 1 BAG IV SCH ×2 (02:46→09:31)
[2020-10-17] MEDS: Acetaminophen 325 MG Tab PO PRN ×2 (02:54→08:01)
[2020-10-17] MEDS: Ondansetron 4 MG/2 ML SDV IVPUSH PRN ×2 (03:12→11:38)
[2020-10-17] MEDS: ceFAZolin 1 GM in Premix Bag 1 BAG IV SCH ×2 (04:50→12:40)
[2020-10-17] MEDS: Magnesium Sulfate/Water 2 GM/50 ML BAG IV SCH ×2 (04:50→10:49)
[2020-10-17] MEDS: Docusate Sodium 100 MG Cap PO SCH (08:02)
[2020-10-17] MEDS: Bisacodyl 5 MG Tab PO SCH (08:02)
[2020-10-17] MEDS: Enoxaparin 30 MG/0.3 ML Syringe SUBCUT SCH (08:06)
[2020-10-17] MEDS ORDERED: Acetaminophen/HYDROcodone 325-5 MG Tab PO PRN (09:58)
[2020-10-17] MEDS ORDERED: Benzocaine/Cetylpyridinium/Menthol Lozenge MUCMEM PRN (09:58)
[2020-10-17] MEDS ORDERED: hydrOXYzine HCL 100 MG/2 ML SDV IM PRN (09:58)
[2020-10-17] MEDS ORDERED: Zolpidem 5 MG Tab PO PRN (09:58)
[2020-10-17] MEDS ORDERED: Docusate Sodium 100 MG Cap PO PRN (09:58)
[2020-10-17 12:01] VITALS: BP 150/85; PULSE 85
--- NOTE | 2020-10-17 13:56 | PN ---
DATE OF SERVICE: 10/17/2020 SUBJECTIVE: The patient doing very well. Pain is well controlled. No nausea, vomiting, shortness of breath, or chest pain. OBJECTIVE: VITAL SIGNS: Stable. CARDIOVASCULAR: Regular rhythm and rate. RESPIRATORY: Lungs are clear to auscultation bilaterally. ABDOMEN: Incision healing well. [place] intact. ASSESSMENT: Status post small bowel resection. PLAN: The patient will be discharged today. Please see discharge summary for further details. Jhony Degroot MD /[id number]
--- NOTE | 2020-10-17 17:12 | DISCH ---
DISCHARGE DIAGNOSES: Status post exploratory laparotomy and small bowel resection. SUMMARY OF HOSPITAL COURSE: Pleasant 75-year-old female who had a strangulated small bowel requiring resection. The patient did well prior to discharge. Her pain is well controlled. She is afebrile per nursing report. No nausea, vomiting, shortness of breath, or chest pain. Tolerating a regular diet, having multiple bowel movements. Her pain is well controlled with Tylenol only. /[id number]
--- NOTE | 2020-10-29 16:33 | PN ---
DATE OF SERVICE: 10/16/2020 The patient has been afebrile with stable vital signs. Passing gas. No bowel movement as of yet. We will increase the intensity of bowel stimulation today. BNP is fairly high. We will give her some Lasix. Otherwise, potassium and phosphate are marginally low, so these will be supplemented once again and maximize activity with pulmonary toilet. Carlos Rosado MD /[id number]
== END 2020-10-17 13:45 | disposition home or self-care (01) | DRG 331 ==
LOC: JP.ED 11:53 → JP.SDS 15:31 → JP.MS 16:03
PROVIDERS: ADMIT Surgery; ATTEND Surgery
PROC: 0W9G0ZZ Drainage of Peritoneal Cavity, Open Approach (ICD-10-PCS; principal; 2020-10-13)
PROC: 0YQ50ZZ Repair Right Inguinal Region, Open Approach (ICD-10-PCS; principal; 2020-10-13)
PROC: 0DB80ZZ Excision of Small Intestine, Open Approach (ICD-10-PCS; principal; 2020-10-13)
DX: K56.609 Unspecified intestinal obstruction, unspecified as to partial versus complete obstruction (principal); J30.9 Allergic rhinitis, unspecified; K40.30 Unilateral inguinal hernia, with obstruction, without gangrene, not specified as recurrent; H54.7 Unspecified visual loss; E78.00 Pure hypercholesterolemia, unspecified; J44.9 Chronic obstructive pulmonary disease, unspecified; M79.7 Fibromyalgia; M19.90 Unspecified osteoarthritis, unspecified site; M81.0 Age-related osteoporosis without current pathological fracture; F17.210 Nicotine dependence, cigarettes, uncomplicated; Z86.010 Personal history of colon polyps; Z98.49 Cataract extraction status, unspecified eye; Z90.49 Acquired absence of other specified parts of digestive tract; Z90.710 Acquired absence of both cervix and uterus; Z79.82 Long term (current) use of aspirin; Z79.899 Other long term (current) drug therapy; Z86.19 Personal history of other infectious and parasitic diseases
CPT/HCPCS: 36415; 74177 ×2; 80053; 81001; 83605; 83690; 85025; 94640; 96365; 96375; 99285 ×2; J0330; J0690; J1100; J2405; J2704; J2710; J3010; J3490 ×3; J7030; Q9967; 80048; 83735; 83880; 84100; 87070; 87075; 87205; 88307; 97162-GP; 97530-GP; 97535-GP; A9270-GY; J0171; J1650; J1885; J1940; J2795; J3410; J3475; J7050; J7121; J7620-GY

== ENCOUNTER 2021-06-20 13:47 | Emergency (ER) | payer MEDICARE ==
[2021-06-20 14:42] VITALS: BP 145/87; PULSE 96
[2021-06-20] MEDS ORDERED: Acetaminophen/HYDROcodone 325-5 MG Tab PO ONE (15:17)
== END 2021-06-20 16:17 | disposition home or self-care (01) ==
LOC: JP.ED 13:47
DX: S20.212A Contusion of left front wall of thorax, initial encounter (principal); E78.00 Pure hypercholesterolemia, unspecified; I10 Essential (primary) hypertension; J44.9 Chronic obstructive pulmonary disease, unspecified; Z79.82 Long term (current) use of aspirin; Z72.0 Tobacco use; W01.0XXA Fall on same level from slipping, tripping and stumbling without subsequent striking against object, initial encounter
CPT/HCPCS: 71046; 71046-26; 99283; 99284-25; A9270-GY